=== PATIENT | female | born 1930 | race Caucasian/White ===

== ENCOUNTER 2017-12-04 10:48 | Outpatient (CLI) | payer MEDICARE, OTHER ==
[~2017-12-04] VITALS: Ht 157.5 cm; Wt 81.0 kg
--- NOTE | ~2017-12-04 | HP ---
PATIENT: NINO JOHN MEDICAL RECORD: [id number] ACCOUNT: [id number] LOCATION:HECTOR : [birth year] ADMISSION DATE: 12/04/17 HISTORY AND PHYSICAL EXAMINATION HISTORY OF PRESENT ILLNESS: An 87-year-old female followed with atrial fibrillation, tachycardia, has been having worsening bradyarrhythmias consistent with history of sick sinus syndrome being brought to the labeling specialist for permanent pacemaker placement. PAST MEDICAL HISTORY: Includes 1. History of sick sinus syndrome. 2. Hypothyroidism, on replacement. 3. Hypertension. PHYSICAL EXAMINATION: GENERAL: Pleasant female in no acute distress, appears younger than stated age. HEENT: Normocephalic, atraumatic. NECK: No JVD or bruit. HEART: Regular. LUNGS: Leavitt are clear. ABDOMEN: Soft, nontender. EXTREMITIES: Pulses 2+. No edema. DIAGNOSTIC DATA: ECG is consistent with tachy-aamir. PLAN: For permanent pacemaker placement. TRANSINT:[id number] Voice Confirmation ID: [id number] DOCUMENT ID: [id number] BENJAMIN ARIZMENDI MD at 1359 CC: [id number] DICTATION DATE: 12/04/17 1429 REGISTERED NURSE POST PARTUM: 12/04/17 1441 DEP CLI 12/05/17 [id number] [place] [address]
--- NOTE | ~2017-12-04 | OP ---
PATIENT NAME: NINO VILLASENOR MEDICAL RECORD: [id number] :[birth year] LOCATION:D.CAT ADMISSION DATE: SURGEON: BENJAMIN ARIZMENDI MD DATE OF OPERATION: 12/04/2017 PROCEDURE: Lead portion of permanent pacemaker placement. INDICATION: Sick sinus syndrome with pauses. SURGEON: Jay Walter MD DESCRIPTION OF PROCEDURE: After left subclavian was cannulated via modified Seldinger technique via Dr. Walter, first under fluoroscopic guidance, the RV lead was placed in the RV apex without difficulty. After adequate R waves and thresholds were obtained, the right atrial lead was placed in the right atrial appendage without difficulty. After adequate P waves and thresholds were obtained, the leads were attached to appropriate poles of the generator and the pocket was closed via Dr. Walter. IMPRESSION: Successful lead portion of permanent pacemaker placement on Nino Villasenor. COMPLICATIONS: None. ESTIMATED BLOOD LOSS: Minimal. DISPOSITION: To the floor, stable. TRANSINT:[id number] Voice Confirmation ID: [id number] DOCUMENT ID: [id number] BENJAMIN ARIZMENDI MD at 1359 CC: [id number] DICTATION DATE: 12/04/17 1339 SUPERVISOR MAINSPRING FABRICATION: 12/04/17 1554 [facility] CLI 12/05/17 [facility] [address] [place] [address]
--- NOTE | ~2017-12-04 | HEMODYNAMI ---
PATIENT:NINO JOHN MEDICAL RECORD: [id number] : [birth year] LOCATION:HECTOR ADMISSION DATE: 12/04/17 Generatedon:12/04/201713:47 Patient name: NINO JOHN Patient #: [id number] SSN: : Date of study: 12/04/2017 Page: Of Hemodynamic Procedure Report Patient Data Patient Demographics Procedure consent was obtained First Name: NINO Gender: Female Last Name: DORA : 1930 [facility] Initial: IRINA Age: 87 year(s) Patient #: [id number] Race: Unknown Additional ID: [id number] Contact details Address: [address] [place] [address] State: [place] City: [place] Zip code: [address] Past Medical History Allergies Allergen Reaction Date Comments Reported Other allergy 12/04/2017 TERRAMYCIN, BETHAPRIM Admission Admission Data Admission Date: 12/04/2017 Admission Time: 10:48 Procedure Procedure Types Cath Procedure Diagnostic Procedure PPM/ICD PPM Dual Implant Procedure Description Procedure Date Procedure Date: 12/04/2017 Procedure Start Time: 13:38 Procedure End Time: 13:46 Procedure Staff Name Function Misael Quiñonez MD Performing Physician Jay Walter MD Assisting physician Maycol Rosenthal RT Monitor Delilah Leavitt RT Scrub Braxton Bela RN Nurse Procedure Data Cath Procedure Fluoroscopy Diagnostic fluoroscopy Total fluoroscopy Time: 4.4 time: 4.4 min min Diagnostic fluoroscopy Total fluoroscopy dose: 96 dose: 96 mGy mGy Contrast Material Contrast Material Type Amount (ml) Isovue 300 0 Estimated blood loss: 5 ml Procedure Complications No complications Procedure Medications Medication Administration Route Dosage Ancef (1Gm/50ml NS) I.V.P.B 1 g Ancef Irrigation Topical 1 g (1gm/500ml NS) 0.9% NaCl I.V. 100 ml/hr Lidocaine 1% with added to field 30 ml Epi Versed I.V. 1 mg Fentanyl I.V. 50 mcg Fentanyl I.V. 50 mcg Versed I.V. 1 mg Oxygen etCO2 Nasal cannula 3 l/min Hemodynamics Rest Heart Rate: 53 (bpm) Snapshots Pre Cath Intra NCS Post Cath Vital Signs Time Heart Resp SPO2 etCO2 NIBP (mmHg) Rhythm Pain Sedation Rate (ipm) (%) (mmHg) Status Level (bpm) 13:03:50 53 23 99 0 229/88(187) NSR 0 (11) 10(A) , No pain 13:08:22 52 12 99 0 234/86(190) NSR 0 (11) 10(A) , No pain 13:12:55 51 19 98 0 216/83(176) NSR 0 (11) 10(A) , No pain 13:17:21 49 11 92 0 202/75(148) NSR 0 (11) 9(A) , No pain 13:21:41 46 11 92 0 101/59(89) NSR 0 (11) 9(A) , No pain 13:29:43 42 14 97 0 158/75(120) NSR 0 (11) 9(A) , No pain 13:34:46 46 18 98 0 160/58(113) NSR 0 (11) 9(A) , No pain 13:39:45 60 13 99 0 171/74(130) NSR 0 (11) 10(A) , No pain 13:44:35 105 13 100 0 182/76(144) NSR 0 (11) 10(A) , No pain Medications Time Medication Route Dose Verified Delivered Reason Notes Effectiv eness by by 12:59:09 Ancef I.V.P.B 1 g Misael Limon Per (1Gm/50ml St Solomon Beal RN physician NS) 12:59:17 Ancef Topical 1 g Misael Limon used for Irrigation [facility] Solomon Beal manager (1gm/500ml NS) 12:59:32 0.9% NaCl I.V. 100 Misael Limon Per ml/hr [facility] Solomon Beal RN physician 13:07:46 Lidocaine added 30 ml Misael Limon for local 1% with Epi to [facility] Solomon Beal RN anesthetic field 13:09:58 Versed I.V. 1 mg Misael Limon for [facility] Solomon Beal RN sedation 13:10:07 Fentanyl I.V. 50 Misael Limon [facility] [place] Solomon Beal RN, MD 13:14:13 Fentanyl I.V. 50 Misael Limon [facility] [place] Solomon Beal RN, MD 13:14:22 Versed I.V. 1 mg Misael Limon for [facility] Solomon Beal RN sedation 13:26:58 Oxygen etCO2 3 Misael Limon Per Nasal l/min [facility] Solomon Beal RN physician cannula MD Procedure Log Time Note 12:30:01 Maycol Rosenthal RT(R) sent for patient. Start room use. 12:38:55 Time tracking: Regular hours (M-F 7:00 - 5:00) 12:38:58 Plan of Care:Hemodynamics will remain stable., Cardiac rhythm will remain stable., Comfort level will be maintained., Respiratory function will remain adequate., Patient/ family verbilizes understanding of procedure., Procedure tolerated without complication., Recovers from procedure without complications.. 12:39:02 Signed procedure consent form obtained from patient. 12:39:17 [employer] provider relations representative PRISCILA QUIÑONES present for procedure. 12:43:53 Medtronic Adapta PPM Dual Generator [id number] opened to sterile field. 12:43:53 Medtronic 4074-52 PPM Lead opened to sterile field. 12:43:54 Medtronic 4574-45 PPM Lead opened to sterile field. 12:44:36 Patient received from Pre/Post Procedure Room to [facility] 3 Alert and oriented. Tansferred to table in Supine position. 12:44:37 Warm blankets applied, and harjit hugger turned on for patient comfort. 12:44:38 Correct patient and procedure confirmed by team. 12:44:39 ECG and BP/O2 sat monitors applied to patient. 12:55:54 H&P Date Dictated: 12/04/2017 Within 30 days and on chart., H&P Addendum completed by physician on day of procedure. (MUST COMPLETE FOR ALL OUTPATIENTS). 12:55:56 Pre-procedure instructions explained to patient. 12:55:59 Family in waiting room. 12:56:01 Patient NPO since Midnight. 12:56:42 Patient allergic to Other allergyTERRAMYCIN, BETHAPRIM 12:56:46 Is the patient allergic to Iodine/contrast media? No. 12:56:58 Was the patient premedicated? Yes 12:57:24 Is patient on blood thinner?No 12:57:54 Previous problem with sedation/anesthesia? No ? 12:57:56 Snore? Yes 12:57:58 Sleep apnea? No 12:58:09 Dentures? Yes TIGHT 12:58:22 Patient pain scale 0/10 ?. 12:58:36 IV patent on arrival in right forearm with 0.9% NaCl at [facility]. 12:58:42 Lab results completed and on chart. 12:58:55 Left chest area was prepped with chlora-prep and draped in sterile fashion 12:58:58 Alarms reviewed by R. N. 12:58:59 Sharps counted by scrub and verified by R.N. 12:59:09 Ancef (1Gm/50ml NS) 1 g I.V.P.B was administered by Braxton Beal RN; Per physician; 12:59:17 Ancef Irrigation (1gm/500ml NS) 1 g Topical was administered by Braxton Beal RN; used for procedure; 12:59:32 0.9% NaCl 100 ml/hr I.V. was administered by Braxton Beal RN; Per physician; 13:01:42 Vital chart was started 13:02:23 Baseline sample Acquired. 13:02:28 Rhythm: sinus bradycardia 13:02:30 Full Disclosure recording started 13:03:52 Use device set PAT PPM 13:03:55 Cautery Tip Gluing Machine Operator Automatic opened to sterile field. 13:03:56 Cautery Pushbutton Pencil opened to sterile field. 13:03:56 Mepilex Dressing ([id number]) opened to sterile field. 13:04:00 2-0 Ticron Multipack ([id number]) opened to sterile field. 13:04:00 3-0 Vicryl Single Pack [id number] opened to sterile field. 13:04:01 5-0 Monocryl PS2 [id number] opened to sterile field. 13:04:02 Immobilizer Sling Medium opened to sterile field. 13:07:46 Lidocaine 1% with Epi 30 ml added to field was administered by Braxton Beal RN; for local anesthetic; 13:09:17 --------ALL STOP TIME OUT------ 13:09:17 Final Timeout: patient, procedure, and site verified with staff and physician. All members of the team are in agreement. 13:09:24 Left chest site verified by team. 13:09:31 Physical assessment completed. ASA score P 2 - A patient with mild systemic disease as per Misael Quiñonez MD. 13:09:35 Sedation plan: IV Moderate Sedation Medication:Versed, Fentanyl 13:09:58 Versed 1 mg I.V. was administered by Braxton Beal RN; for sedation; 13:10:07 Fentanyl 50 mcg I.V. was administered by Braxton Beal RN; ; 13:10:48 Pre sharps counted by scrub and verified by RN: Sutures: 7; Sponges: 5; Stick needles: 2; Skin needles: 2; Blade: 1; Cautery: 1 13:10:53 Grounding pad site Left thigh. 13:10:54 Grounding pad site free from injury. 13:13:37 Lidocaine 1% w/epi and Bupivacaine 0.5% was administered to left subclavicular area by Jay Walter MD . 13:13:43 Procedure started. 13:14:13 Fentanyl 50 mcg I.V. was administered by Braxton Beal RN; ; 13:14:22 Versed 1 mg I.V. was administered by Braxton Beal RN; for sedation; 13:15:29 Incision made to left subclavicular area. 13:16:39 Generator pocket made/opened. 13:18:54 Left subclavian vein accessed with 7Fr Peel Away Sheath. 13:19:06 Ventricular lead inserted and advanced. 13:19:12 Left subclavian vein accessed with 7Fr Peel Away Sheath. 13:19:48 Atrial lead inserted and advanced. 13:21:45 Ventricular lead positioned. 13:22:38 Ventricular lead tested. 13:25:49 Peel-a-way sheath was split and removed. 13:25:52 Ventricular lead attachment was completed with 2-0 ticron. 13:26:19 Atrial lead positioned. 13:26:33 Atrial lead tested. 13:26:58 Oxygen 3 l/min etCO2 Nasal cannula was administered by Braxton Beal RN; Per physician; 13:28:23 Peel-a-way sheath was split and removed. 13:28:29 Atrial lead attachment was completed with 2-0 ticron. 13:32:04 PPM Dual was attached to lead(s) and inserted into pocket. 13:34:21 Device pocket was irrigated with Ancef. 13:35:17 Generator was sutured in place with 2-0 ticron. 13:35:35 Subcutaneous closure was completed with 3-0 vicryl. 13:36:38 Parameters-- Generator: Mode: AAIR/DDDR. Lower Rate: 60bpm. Upper Rate: 130bpm. 13:37:33 Parameters--Ventricular P/R Wave: 16.6mV. Current: 0.7mA; Threshold: 1.1V; Impedence: 1757OHMS. 13:37:55 Parameters--Atrial P/R Wave: 2.2mV. Current: 1.2mA; Threshold: 1.2V; Impedence: 706OHMS. 13:38:20 Lt Chest incision was dressed with 4 x 4 and Tegaderm. 13:41:07 Procedure ended.(Physican Out) 13:41:42 Fluoroscopy time 04.40 minutes. 13:41:47 Fluoroscopy dose: 96 mGy 13:41:47 Flurop Dose total: 96 13:41:50 Contrast amount:Isovue 300 0ml. 13:41:52 Sharps counted by scrub and verified by R.N. 13:42:21 Insertion/operative site no bleeding no hematoma. 13:42:36 Post sharps counted by scrub and verified by RN: Sutures: 7; Sponges: 5; Stick needles: 2; Skin needles: 2; Blade: 1; Cautery: 1 13:42:41 Post Procedure Pulses reassessed and unchanged 13:42:45 Post-procedure physical assessment completed. ASA score P 2 - A patient with mild systemic disease as per Misael Quiñonez MD. 13:42:48 Post procedure rhythm: unchanged. 13:43:01 Estimated blood loss: 5 ml 13:43:03 Post procedure instruction explained to patient.Patient verbalizes understanding. 13:43:03 Patient needs reinforcement of post procedure teaching. 13:43:11 Procedure and supply charges have been captured, reviewed, submitted and are correct. 13:43:13 Procedure Complication : No complications 13:44:14 Vital chart was stopped 13:44:16 See physician's report for complete and final results. 13:44:17 Report given to Pre/Post Procedure Room. 13:44:20 Patient transfered to Pre/Post Procedure Room with Stretcher. 13:46:16 Procedure ended. 13:46:16 Full Disclosure recording stopped 13:46:19 End room use (Document Last) Device Usage Item Name Manufacture Quantity Catalog Hospital Part Current Minimal Lot# / Number Charge Number Stock Stock Serial# Code Medtronic Medtronic 1 [id number] [id number] 5 [id number] Adapta PPM EXP Dual Generator [id number] Medtronic Medtronic 1 4074-52 267606 158321 5 [id number] 4074-52 PPM EXP Lead 2019-05-07 Medtronic Medtronic 1 4574-45 220605 248360 5 [id number] 4574-45 PPM EXP Lead 2019-08-17 Cautery Tip Microtek 1 [id number] 399846 896974 [id number] 5 Gluing Machine Operator [employer] Cautery Microtek 1 [id number] 97174 404767 5 Pushbutton [employer] Pencil Mepilex Cardinal 1 [id number] 177598 598309 [id number] 5 Dressing Health ([id number]) 2-0 Ticron Ethicon 0 [id number] 990362 28761 281500 5 Multipack ([id number]) 3-0 Vicryl Ethicon 1 [id number] 878663 023148 609840 5 Single Pack [id number] 5-0 Monocryl Ethicon 1 [id number] 721186 441465 5 PS2 Y495G Immobilizer Cardinal 1 [id number] [id number] 5 Sling Medium Health Signature Audit [place] Stage Time Signature Unsigned Intra-Procedure 12/04/2017 Maycol Rosenthal 1:47:10 PM RT(R) Signatures Monitor : Maycol Rosenthal RT Signature : Date : Time : [facility] [address] [place] [address]
--- NOTE | ~2017-12-04 | OP ---
PATIENT NAME: NINO JOHN MEDICAL RECORD: [id number] :[birth year] LOCATION:D.CAT ADMISSION DATE: SURGEON: JAY STEWART MD DATE OF OPERATION: 12/04/2017 PREOPERATIVE DIAGNOSES: 1. Atrial fibrillation. 2. Hypertension. 3. Hypothyroidism. POSTOPERATIVE DIAGNOSES: 1. Atrial fibrillation. 2. Hypertension. 3. Hypothyroidism. PROCEDURE: 1. Left subclavian vein dual lead pacemaker placement. 2. Fluoroscopic interpretation. SURGEON: Jay Stewart MD CO-SURGEON: Misael Chong MD DESCRIPTION OF PROCEDURE: The patient's left chest was prepped and draped in sterile fashion. A total of 20 mL of 1% lidocaine with epinephrine was infused into the surrounding tissues. A skin incision was made on the left superior lateral chest and a subcutaneous pouch was made over the pectoral fascia. We accessed the left subclavian vein times 2 and guidewires were advanced with ease. Fluoro was used to note that the wires were in good position in the venous system. A dilator trocar device was placed over the wires and the wires and dilators were removed. The leads were advanced through the trocars and at this point, Dr. Chong positioned the leads appropriately in the atrium and ventricle. Once these were noted to be functioning appropriately, then the leads were sutured into place with 0 Ti-Cron. The leads were affixed to the pacemaker and the pacemaker was placed in the subcutaneous pouch. The pacemaker was sutured to the pectoral fascia using an interrupted 0 Ti-Cron. We irrigated out the wound with antibiotic solution. The subcutaneous tissues were then reapproximated with interrupted 3-0 Vicryls and the skin incision was closed with running subcutaneous 5-0 Monocryl. COMPLICATIONS: None. CONDITION: Stable. ANESTHESIA: Local MAC. BLOOD LOSS: Minimal. TRANSINT:[id number] Voice Confirmation ID: [id number] DOCUMENT ID: [id number] OPERATIVE REPORT [id number] NINO JOHN IRINA JAY STEWART MD at 1031 CC: [id number] DICTATION DATE: 12/04/17 1344 BRANCH ACCOUNT EXECUTIVE: 12/04/17 1533 DEP CLI 12/05/17 [place] [address]
[2017-12-04] MEDS ORDERED: FUROSEMIDE20 MG PO (11:06)
[2017-12-04] MEDS ORDERED: METOPROLOL TART50 MG PO (11:06)
[2017-12-04] MEDS ORDERED: ARMOUR THYROID90 MG PO (11:06)
[2017-12-04] MEDS ORDERED: PACERONE200 MG PO (11:07)
[2017-12-04 11:21] VITALS: BP 205/70; BMI 31.1
[2017-12-04 11:34] LABS: HEMATOCRIT 41.7 % (36.0-48.0); HEMOGLOBIN 13.5 g/dL (12-16); MCH 31.3 pg (26.0-34.0); MCHC 32.4 g/dL (31.0-37.0); MCV 96.8 fL (80.0-100.0); RBC 4.31 10x6/uL (4.00-5.40); RDW 14.4 % (11.5-14.5); WBC 6.7 10x3/uL (4.8-10.8)
[2017-12-04 11:40] LABS: APTT 23.4 SECONDS (22.8-39.4); INR 0.95 (0.85-1.17); PROTIME 12.3 SECONDS (11.6-15.0)
[2017-12-04 11:45] LABS: ANION GAP 11.6 mmol/L (8-16); CALCIUM 9.2 mg/dL (8.5-10.1); CARBON DIOXIDE 31.7 mmol/L (21.0-32.0); CREATININE - SERUM 2.2 mg/dL (0.6-1.3); POTASSIUM - SERUM 5.3 mmol/L (3.5-5.1)
[2017-12-04 16:37] VITALS: BP 180/72; Ht 157.5 cm; Wt 81.0 kg
[2017-12-04 20:47] VITALS: BP 137/62
[2017-12-05] VITALS: BP 161/62
[2017-12-05 05:08] VITALS: BP 173/67
[2017-12-05 08:21] VITALS: BP 154/45
[2017-12-05 11:37] VITALS: BP 183/65
== END 2017-12-05 13:23 | disposition home or self-care (01) ==
LOC: D.CATH 10:48 → D.M2 10:48 → D.CATH 13:00 → D.M2 16:20 → D.CATH 12-05 13:23
PROVIDERS: Internal Medicine Interventional Cardiology
DX: I49.5 Sick sinus syndrome (principal); I10 Essential (primary) hypertension; E03.9 Hypothyroidism, unspecified; Z01.812 Encounter for preprocedural laboratory examination

== ENCOUNTER 2017-12-08 22:37 | Emergency (ER) | payer MEDICARE, OTHER ==
[2017-12-04 16:37] VITALS: BMI 31.1
[~2017-12-08 22:37] MED LIST: ARMOUR THYROID90 MG PO; FUROSEMIDE20 MG PO; METOPROLOL TART50 MG PO; PACERONE200 MG PO
[2017-12-08 23:25] LABS: BASOPHILS 0.8 % (0-2); EOSINOPHILS 2.9 % (0-7); HEMATOCRIT 41.9 % (36.0-48.0); HEMOGLOBIN 13.7 g/dL (12-16); IMMATURE GRANULOCYTES 0.1 % (0-5); LYMPHOCYTES 14.4 % (15-50); MCH 31.4 pg (26.0-34.0); MCHC 32.7 g/dL (31.0-37.0); MCV 95.9 fL (80.0-100.0); MEAN PLATELET VOLUME 11.9 fL (7.4-10.4); MONOCYTES 11.3 % (2-11); NEUTROPHILS 70.5 % (40-80); PLATELET COUNT 161 10x3/uL (130-400); RBC 4.37 10x6/uL (4.00-5.40); RDW 13.9 % (11.5-14.5); WBC 7.3 10x3/uL (4.8-10.8)
[2017-12-08 23:41] LABS: ALBUMIN 3.5 g/dL (3.4-5.0); ALKALINE PHOSPHATASE 77 U/L (46-116); ALT (SGPT) 22 U/L (10-68); CALC OSMOLALITY 283 mosm/kg (275-300); CALCIUM 9.3 mg/dL (8.5-10.1); CARBON DIOXIDE 28.5 mmol/L (21.0-32.0); CHLORIDE - SERUM 103 mmol/L (98-107); CREATININE - SERUM 1.5 mg/dL (0.6-1.3); GLUCOSE 94 mg/dL (74-106); POTASSIUM - SERUM 4.8 mmol/L (3.5-5.1); PROTEIN - SERUM 7.7 g/dL (6.4-8.2); SODIUM 138 mmol/L (136-145); UREA NITROGEN 34 mg/dL (7-18); eGFR NON AFRICAN AMERICAN 35 mL/min (90-120)
[2017-12-08 23:52] LABS: CHOL - HDL RATIO 3.4 ratio (2.3-4.1); CHOLESTEROL, TOTAL 220 mg/dL (0-200); CKMB 1.1 U/L (0.0-3.6); CREATINE KINASE 52 UL (21-215); HDL CHOLESTEROL 64 mg/dL (32-96); LDL CHOLESTEROL 144 mg/dL (0-100); LDL-HDL RATIO 2.3 ratio (1.5-3.5); TRIGLYCERIDE 62 mg/dL (30-200); TROPONIN-I 0.017 ng/mL (0.000-0.060)
== END 2017-12-09 00:43 | disposition home or self-care (01) ==
LOC: D.ER 22:37
PROVIDERS: Family Medicine
DX: R07.9 Chest pain, unspecified (principal); I10 Essential (primary) hypertension; Z95.0 Presence of cardiac pacemaker; E07.9 Disorder of thyroid, unspecified; Z86.73 Personal history of transient ischemic attack (TIA), and cerebral infarction without residual deficits

== ENCOUNTER 2017-12-11 21:12 | Emergency (ER) | payer MEDICARE, OTHER ==
[2017-12-04 16:37] VITALS: BMI 31.1
[2017-12-11 22:24] LABS: ALBUMIN 3.6 g/dL (3.4-5.0); ANION GAP 12.2 mmol/L (8-16); BILIRUBIN - TOTAL 0.3 mg/dL (0.2-1.3); CALCIUM 9.5 mg/dL (8.5-10.1); CARBON DIOXIDE 32.7 mmol/L (21.0-32.0); CREATININE - SERUM 1.4 mg/dL (0.6-1.3); POTASSIUM - SERUM 4.9 mmol/L (3.5-5.1); PROTEIN - SERUM 7.9 g/dL (6.4-8.2)
== END 2017-12-12 00:01 | disposition home or self-care (01) ==
LOC: D.ER 21:12
PROVIDERS: Family Medicine
DX: I10 Essential (primary) hypertension (principal)